=== PATIENT | female | born 1960 ===

== ENCOUNTER 2021-11-21 10:07 | Outpatient (REF) | payer SELFPAY ==
[2021-11-21 13:36] LABS: MANUAL DIFF FLAG NO
[2021-11-21 13:40] LABS: Mean Corpuscular Volume 97.8 fL (80.0-98.0); PLT CLUMP 1; Red Blood Count 5.42 X10*6/uL (4.20-5.50); Red Cell Distribution Width 13.9 % (11.0-16.0); SCAN SMEAR FLAG 1
[2021-11-21 13:42] LABS: Basophils Absolute Auto 0.1 X10*3/uL (0.0-0.2); Basophils Percent Auto 0.3 % (0-2); Eosinophils Absolute Auto 0.2 X10*3/uL (0.0-0.4); Eosinophils Percent Auto 0.9 % (0-4); Hemoglobin 17.4 g/dl (12.0-16.0); Imm Gran Abs Auto 0.09 X10*3/uL (0.00-0.03); Imm Gran Pct Auto 0.6 % (0.0-0.4); Lymphocytes Absolute Auto 1.1 X10*3/uL (1.2-4.9); Mean Corpuscular HGB Conc 32.8 g/dl (31.0-35.0); Mean Corpuscular Hemoglobin 32.1 pg (27.0-33.0); Mean Platelet Volume 10.8 fL (9.4-12.3); Monocytes Absolute Auto 2.4 X10*3/uL (0.1-1.2); Monocytes Percent Auto 15.1 % (2-11); Neutrophils Absolute Auto 12.1 x10*3/uL (2.0-8.3); Neutrophils Percent Auto 76.1 % (45-73)
[2021-11-21 13:43] LABS: White Blood Count 16.1 X10*3/uL (4.8-10.8)
[2021-11-21 13:59] LABS: Platelet Count 214 X10*3/uL (160-400)
== END 2021-11-21 10:08 | disposition home or self-care (01) ==
LOC: HO.LNPL 10:07
PROVIDERS: Visit Provider Specialist
DX: R50.9 Fever, unspecified (principal); R00.0 Tachycardia, unspecified
CPT/HCPCS: 85025; 87040

== ENCOUNTER 2023-07-10 21:42 | Outpatient (REF) | payer SELFPAY | END 2023-07-10 21:43 | disposition home or self-care (01) | LOC: HO.WMHL 21:42 | PROVIDERS: Visit Provider Nurse Practitioner Acute Care | DX: Z13.89 Encounter for screening for other disorder (principal) | CPT/HCPCS: 81001; 81003; 87086; 87088; 87186 ==

== ENCOUNTER 2023-10-23 14:37 | Outpatient (REF) | payer SELFPAY | END 2023-10-23 14:38 | disposition home or self-care (01) | LOC: HO.LNP 14:37 | PROVIDERS: Visit Provider Nurse Practitioner Adult Health | DX: G40.909 Epilepsy, unspecified, not intractable, without status epilepticus (principal); R82.90 Unspecified abnormal findings in urine | CPT/HCPCS: 81001; 81003; 87086; 87088; 87186 ==

== ENCOUNTER 2024-05-10 21:50 | Outpatient (REF) | payer MEDICARE, MEDICAID, SELFPAY ==
[2024-05-11 01:34] LABS: Appearance Urine Cloudy; Color Urine Yellow; Glucose Urine UA Negative (Negative); Leukocyte Esterase Urine Large (3+) (Negative); Nitrite Urine Positive (Negative); UMIC TRIGGER UA YES; Urine Blood Negative (Negative); Urine Ketones Negative (Negative); Urine Protein Negative (Neg-Trace)
[2024-05-11 01:44] LABS: Bacteria Urine 4+ (None Seen); RBC Urine 0-2 /HPF (0-2); Squamous Epithelial Cell Urine >20 /HPF (0-2); WBC Clumps Urine Present; WBC Urine 21-50 /HPF (0-5)
== END 2024-05-10 21:51 | disposition home or self-care (01) ==
LOC: HO.LNP 21:50
PROVIDERS: Visit Provider Nurse Practitioner
DX: R50.9 Fever, unspecified (principal); N39.0 Urinary tract infection, site not specified; B96.1 Klebsiella pneumoniae [K. pneumoniae] as the cause of diseases classified elsewhere
CPT/HCPCS: 81001; 87086; 87088; 87186

== ENCOUNTER 2024-12-27 11:37 | Outpatient (REF) | payer MEDICARE, MEDICAID, SELFPAY | END 2024-12-27 11:38 | disposition home or self-care (01) | LOC: HO.WMHL 11:37 | PROVIDERS: Visit Provider Nurse Practitioner | DX: Z51.81 Encounter for therapeutic drug level monitoring (principal); R89.2 Abnormal level of other drugs, medicaments and biological substances in specimens from other organs, systems and tissues; G40.812 Lennox-Gastaut syndrome, not intractable, without status epilepticus | CPT/HCPCS: 36415; 80184 ==